=== PATIENT | male | born 1985 ===

== ENCOUNTER 2017-04-22 12:08 | Emergency (ER) | payer OTHER ==
[~2017-04-22] VITALS: Ht 180.3 cm; Wt 155.3 kg
[2017-04-22] MEDS ORDERED: HYDROmorphone 1 MG/ML, 1ML IM ONE (13:30)
[2017-04-22] MEDS ORDERED: ONDANSETRON ODT 4 MG PO ONE (13:30)
[2017-04-22] MEDS ORDERED: KETOROLAC 30 MG/1 ML IM ONE (13:30)
[2017-04-22] MEDS ORDERED: METHOCARBAMOL 750 MG TABLET PO ONE (13:30)
[2017-04-22] MEDS ORDERED: METHOCARBAMOL 750 MG TABLET ONE (13:39)
[2017-04-22] MEDS ORDERED: ONDANSETRON ODT 4 MG ONE (13:39)
[2017-04-22] MEDS ORDERED: HYDROmorphone 2 MG/ML, 1ML ONE ×2 (13:40→15:14)
[2017-04-22] MEDS ORDERED: KETOROLAC 30 MG/1 ML ONE (13:40)
[2017-04-22 13:55] LABS: RAPID INFLUENZA A Negative (Negative); RAPID INFLUENZA B POSITIVE (Negative)
[2017-04-22 14:14] LABS: BASOPHILS # (AUTO) 0.02 x10^3/uL (0-0.1); BASOPHILS % (AUTO) 0 % (0-1); EOSINOPHILS # (AUTO) 0.09 x10^3/uL (0-0.4); EOSINOPHILS % (AUTO) 1 % (1-7); LYMPHOCYTES # (AUTO) 0.78 x10^3/uL (1-3.4); LYMPHOCYTES % (AUTO) 12 % (22-44); MD NO; MEAN CORPUSCULAR HEMOGLOBIN 30.5 pg (27.5-34.5); MEAN CORPUSCULAR HGB CONC 33.9 g/dL (33.2-36.2); MEAN CORPUSCULAR VOLUME 90.1 fL (81-97); MEAN PLATELET VOLUME 8.5 fL (7.4-10.4); MONOCYTES # (AUTO) 0.75 x10^3/uL (0.2-0.8); MONOCYTES % (AUTO) 11 % (2-9); NEUTROPHILS # (AUTO) 4.92 x10^3/uL (1.8-6.8); NEUTROPHILS % (AUTO) 75 % (42-75); PLATELET COUNT 258 x10^3/uL (130-400); RED BLOOD COUNT 5.01 x10^6/uL (4.38-5.82); RED CELL DISTRIBUTION WIDTH 12.9 % (9.4-14.8)
[2017-04-22 14:22] LABS: ALBUMIN 3.6 g/dL (3.4-5.0); ANION GAP 6 mmol/L (5-15); CALCIUM 8.5 mg/dL (8.5-10.1); CHLORIDE 102 mmol/L (98-107); CREATININE 1.11 mg/dL (0.7-1.3)
[2017-04-22 15:09] LABS: MICROSCOPIC NOT IND
[2017-04-22 15:10] VITALS: BP 162/80
== END 2017-04-22 15:37 | disposition home or self-care (01) ==
LOC: ED 14:30
DX: J10.1 Influenza due to other identified influenza virus with other respiratory manifestations (principal); J40 Bronchitis, not specified as acute or chronic; M54.5 Low back pain
CPT/HCPCS: 36415; 71046; 72110; 80048; 81003; 82040; 83605; 85025; 87400; 96372; 99285; J1170; J1885; Q0162

== ENCOUNTER 2017-05-17 15:42 | Inpatient (IN) | payer OTHER ==
[~2017-05-17] VITALS: Ht 180.3 cm; Wt 159.9 kg
[2017-05-17] MEDS ORDERED: SODIUM CHLORIDE FLUSH 10ML SYR IVF ONE (16:30)
[2017-05-17] MEDS ORDERED: ASPIRIN 81 MG TABLET CHEW ONE (16:39)
[2017-05-17] MEDS ORDERED: AMOX-291 PO (16:46)
[2017-05-17] MEDS ORDERED: IBUP200T49 PO (16:46)
[2017-05-17] MEDS ORDERED: PANT20TA3 PO (16:46)
[2017-05-17 16:51] LABS: ALANINE AMINOTRANSFERASE 36 U/L (12-78); ALBUMIN 3.4 g/dL (3.4-5.0); ANION GAP 6 mmol/L (5-15); CALCIUM 8.2 mg/dL (8.5-10.1); CHLORIDE 107 mmol/L (98-107); CREATININE 0.95 mg/dL (0.7-1.3)
[2017-05-17 16:52] LABS: BASOPHILS # (AUTO) 0.02 x10^3/uL (0-0.1); BASOPHILS % (AUTO) 0 % (0-1); EOSINOPHILS # (AUTO) 0.12 x10^3/uL (0-0.4); EOSINOPHILS % (AUTO) 1 % (1-7); LYMPHOCYTES # (AUTO) 1.93 x10^3/uL (1-3.4); LYMPHOCYTES % (AUTO) 19 % (22-44); MD NO; MEAN CORPUSCULAR HEMOGLOBIN 30.3 pg (27.5-34.5); MEAN CORPUSCULAR HGB CONC 33.6 g/dL (33.2-36.2); MEAN CORPUSCULAR VOLUME 90.1 fL (81-97); MEAN PLATELET VOLUME 9.2 fL (7.4-10.4); MONOCYTES # (AUTO) 0.59 x10^3/uL (0.2-0.8); MONOCYTES % (AUTO) 6 % (2-9); NEUTROPHILS # (AUTO) 7.36 x10^3/uL (1.8-6.8); NEUTROPHILS % (AUTO) 74 % (42-75); PLATELET COUNT 290 x10^3/uL (130-400); RED BLOOD COUNT 5.02 x10^6/uL (4.38-5.82); RED CELL DISTRIBUTION WIDTH 12.9 % (9.4-14.8)
[2017-05-17 16:54] LABS: ALKALINE PHOSPHATASE 77 U/L (45-117); BILIRUBIN,TOTAL 0.4 mg/dL (0.2-1.0); TOTAL PROTEIN 7.1 g/dL (6.4-8.2); TROPONIN I 0.039 ng/mL (0.000-0.045)
[2017-05-17] MEDS ORDERED: ASPIRIN 81 MG TABLET CHEW PO ONE (17:00)
[2017-05-17] MEDS ORDERED: ONDANSETRON 2MG/ML, 2ML IVPush PRN (21:00)
[2017-05-17] MEDS: AMOXICILLIN 500 MG CAPSULE PO SCH (23:05)
[2017-05-17] MEDS: SODIUM CHLORIDE 0.9% 1,000 ML IV SCH (23:05)
[2017-05-17] MEDS: PANTOPRAZOLE 20MG TABLET PO SCH (23:05)
[2017-05-17 23:09] VITALS: BP 149/63
[2017-05-17] MEDS: ACETAMINOPHEN 325 MG TABLET PO PRN (23:09)
[2017-05-18 03:39] VITALS: BP 142/70
[2017-05-18] MEDS: ACETAMINOPHEN 325 MG TABLET PO PRN ×4 (03:43→20:27)
[2017-05-18] MEDS: SODIUM CHLORIDE 0.9% 1,000 ML IV SCH ×2 (07:07→17:46)
[2017-05-18] MEDS: AMOXICILLIN 500 MG CAPSULE PO SCH ×2 (08:19→20:25)
[2017-05-18] MEDS: PANTOPRAZOLE 20MG TABLET PO SCH ×2 (08:20→20:25)
[2017-05-18] MEDS ORDERED: SODIUM CHLORIDE 0.9% 1,000 ML IV SCH (08:53)
[2017-05-18] MEDS ORDERED: CEFAZOLIN PMX 1GM/50ML 50 ML IVPB ONE (09:30)
[2017-05-18] MEDS ORDERED: MIDAZOLAM 1 MG/ML, 2ML ONE ×2 (09:49→10:54)
[2017-05-18] MEDS ORDERED: CEFAZOLIN PMX 1GM/50ML 50 ML ONE (09:49)
[2017-05-18] MEDS ORDERED: LIDOCAINE 2%, 20ML ONE (09:49)
[2017-05-18] MEDS ORDERED: FENTANYL PF 100 MCG/2ML ONE ×2 (09:49→10:54)
[2017-05-18] MEDS ORDERED: CEFAZOLIN 1,000 MG ONE (09:50)
[2017-05-18] MEDS ORDERED: DIPHENHYDRAMINE 50 MG/ML, 1ML ONE (11:05)
[2017-05-18] MEDS ORDERED: HYDROcodone/APAP 5/325 TABLET PO PRN (12:00)
[2017-05-18 14:00] VITALS: BP 149/90
[2017-05-18] MEDS: CEFAZOLIN PMX 1GM/50ML 50 ML IVPB SCH (17:46)
[2017-05-18 19:52] VITALS: BP 150/79
[2017-05-18] MEDS: SODIUM CHLORIDE FLUSH 10ML SYR IVF SCH (20:25)
[2017-05-19] MEDS: ACETAMINOPHEN 325 MG TABLET PO PRN ×2 (00:32→08:25)
[2017-05-19 00:47] VITALS: BP_SYST 167; BP_SYST 171; BP_DIAS 109; BP_DIAS 118
[2017-05-19] MEDS: CEFAZOLIN PMX 1GM/50ML 50 ML IVPB SCH ×2 (01:28→09:58)
[2017-05-19] MEDS ORDERED: hydrALAzine 20 MG/ML, 1ML IV PRN (01:30)
[2017-05-19 02:26] VITALS: BP 143/82
[2017-05-19] MEDS: SODIUM CHLORIDE 0.9% 1,000 ML IV SCH (06:26)
[2017-05-19 08:48] VITALS: BP 149/84
[2017-05-19] MEDS: PANTOPRAZOLE 20MG TABLET PO SCH (09:00)
[2017-05-19] MEDS: SODIUM CHLORIDE FLUSH 10ML SYR IVF SCH (09:00)
[2017-05-19] MEDS: AMOXICILLIN 500 MG CAPSULE PO SCH (09:32)
[2017-05-19 10:42] LABS: CHOL/HDL RATIO 4.3; LDL/HDL RATIO 2.7 (0.5-3.0)
[2017-05-19] MEDS ORDERED: SULF1TAB24 PO (11:09)
== END 2017-05-19 12:15 | disposition home or self-care (01) | DRG 243 ==
LOC: ED 16:26 → EDIP 18:12 → CCU 21:37 → 5SO 05-18 11:58 → DCLOUNGE 05-19 11:55
PROVIDERS: ADMIT Hospitalist; ATTEND Internal Medicine
PROC: 0JH606Z Insertion of Pacemaker, Dual Chamber into Chest Subcutaneous Tissue and Fascia, Open Approach (ICD-10-PCS; principal; 2017-05-18)
PROC: 02H63JZ Insertion of Pacemaker Lead into Right Atrium, Percutaneous Approach (ICD-10-PCS; 2017-05-18)
PROC: 02HK3JZ Insertion of Pacemaker Lead into Right Ventricle, Percutaneous Approach (ICD-10-PCS; 2017-05-18)
DX: I44.2 Atrioventricular block, complete (principal); Z68.42 Body mass index [BMI] 45.0-49.9, adult; E66.01 Morbid (severe) obesity due to excess calories; K04.7 Periapical abscess without sinus; K21.9 Gastro-esophageal reflux disease without esophagitis; Z87.11 Personal history of peptic ulcer disease
CPT/HCPCS: 33208; 36415; 71045; 80053; 80061; 84443; 84484; 85025; 87081; 93005; 93306; 99156; 99157; 99285; C1779; C1785; C1892; J0690; J2250; J3010; J3490; J0360; J1200; J7030